=== PATIENT | male | born 1940 | race Caucasian/White ===

== ENCOUNTER → 2022-07-28 10:25 | Outpatient (BNVA) | payer MEDICARE, SELFPAY | PROVIDERS: PCP Family Medicine; Visit Provider Nurse Practitioner Family | DX: J44.9 Chronic obstructive pulmonary disease, unspecified (principal); R06.00 Dyspnea, unspecified | CPT/HCPCS: 99202 ==

== ENCOUNTER 2022-08-26 09:50 | Outpatient (REF) | payer MEDICARE, OTHER, SELFPAY ==
--- NOTE | ~2022-08-26 | CT_ITS ---
EXAMINATION: CT CHEST WITHOUT CONTRAST CLINICAL INFORMATION: COPD. COMPARISON: Chest x-ray 12/14/2007 TECHNIQUE: Multidetector volumetric CT imaging of the chest was done. Axial MIP volume rendering provided. Sagittal and coronal reformatted images were obtained. This CT examination was performed using dose optimization techniques as appropriate, variously including the following: *Automated exposure control *Adjustment of mA and/or kV according to patient size (this includes techniques or standardized protocols for targeted exams where dose is matched to indication/reason for exam; i.e. extremities or head) *Use of iterative reconstruction technique DLP: 269 mGy-cm FINDINGS: MASTER OCEAN: Hyperinflated lungs are clear. LUNGS: There is diffuse centrilobular emphysema with minimal bilateral apical parenchymal scarring and pleural thickening. There are no pulmonary nodules, mass or consolidation. MEDIASTINUM: Atherosclerotic changes of thoracic aorta without aneurysmal dilatation. Heart size is normal. No pericardial effusion seen. No abnormal size mediastinal or hilar lymph nodes seen. The thyroid lobes are symmetric and normal. The central trachea is slightly dilated secondary to COPD. No intraluminal filling defect or nodule seen. CORONARY ARTERY CALCIFICATION: Moderate coronary artery calcifications are present. PLEURA: There is right upper lobe posterior pleural calcification axial image 24/8. Some scattered calcification is seen in the right lung apical pleura and minimal in the left side. No pleural effusion or pleural thickening seen. AXILLA: No lymphadenopathy. UPPER ABDOMEN: Visualized liver, spleen, pancreas and bilateral adrenal glands are unremarkable. OSSEOUS STRUCTURES: No aggressive lytic or sclerotic process seen. CT/CT chest wo IV con IMPRESSION: Diffuse centrilobular emphysema. No pulmonary nodule, acute consolidation, mass or abnormal mediastinal adenopathy. Fleischner guidelines were followed.
== END 2022-08-26 09:51 | disposition home or self-care (01) ==
LOC: HO.CT 09:50
PROVIDERS: PCP Family Medicine; Visit Provider Nurse Practitioner Family
DX: J44.9 Chronic obstructive pulmonary disease, unspecified (principal)
CPT/HCPCS: 71250

== ENCOUNTER 2022-09-08 09:56 | Outpatient (AMB) | payer MEDICARE, OTHER, SELFPAY ==
--- NOTE | 2022-09-08 10:06 | MHC.OFFVIS ---
Intake Vital Signs 09/08/22 10:07 BP 112/68 Blood Pressure Location Lt brachial Position Sitting Pulse 96 Pulse Source Pulse Oximeter Pulse Oximetry (%) 95 Oxygen Delivery Method Room Air Intake Visit Reasons: Shortness of breath Vp Sales Required: No [employer] Director: [employer] Director offered & declined Allergies No Known Allergies Allergy (Mild, Unverified 09/08/22 10:11) unknown Medication List - Last Reconciled 09/08/22 by Evelyne Vuong LPN atorvastatin 40 mg PO BEDTIME clopidogrel 75 mg PO DAILY docusate sodium 50 mg PO DAILY ipratropium-albuterol 0.5 mg-3 mg(2.5 mg base)/3 mL 3 mL inhalation Q6H PRN lisinopril 10 mg PO DAILY lorazepam 1 mg PO BEDTIME PRN oxycodone-acetaminophen 2.5-325 mg 1 tab PO DAILY PRN pantoprazole 40 mg PO BID prednisone 40 mg (2 x 20 mg) PO DAILY tamsulosin 0.4 mg PO DAILY HPI Shortness of breath HPI Details Michael is a pleasant 81 year old male, former 150 pack year smoker, quit 10 years ago with underlying history of CVA x 3 and stomach cancer s/p radiation as well as multiple surgeries in 2013. At the last visit, he was started on duoneb treatments and reports significant improvements overall. He was using BID but felt it was contributing to BLE edema, so has been using once daily with good effect and has slowly been increasing his activity level. He denies any cough or wheezing. He has an echocardiogram scheduled next week and will have a consultation with cardiology next month. [facility] Social History (Updated 09/08/22 @ 10:15 by Evelyne Vuong LPN) Patient Tobacco Use Status: Former Tobacco user Tobacco use type: Cigarette Cigarette Packs Per Day: 3 Years Smoked: 50+/stopped 2013 Review of Systems Const Denies chills, Denies excessive sweating, Denies fever(s), Denies headache(s) and Denies night sweats Eyes Denies dry eyes, Denies irritation and Denies itchy eyes ENT Reports Normal hearing present and Denies headache(s) Card Denies chest pain, Denies chest pain at rest, Denies chest pain with activity, Reports dyspnea, Reports dyspnea on exertion and Reports orthopnea Resp Denies chest congestion, Denies cough, Denies hemoptysis, Denies excessive phlegm production, Denies pain on inspiration, Denies pain with cough, Reports dyspnea, Reports dyspnea on exertion and Denies stridor Musc Denies myalgias Neuro Reports Normal hearing present and Denies headache(s) Endo Denies excessive sweating Cristian/Lymph Denies lymphadenopathy Aller/Immun Denies itchy eyes Physical Exam Vital Signs: Last Vital Signs Pulse 96 09/08/22 10:07 BP 112/68 09/08/22 10:07 Pulse Ox 95 09/08/22 10:07 Oxygen Delivery Method Room Air 09/08/22 10:07 Const General: cooperative, healthy appearing, comfortable, no acute distress, well developed and alert Orientation/consciousness: patient oriented x3 HEENT Head: Yes normal to inspection, Yes normocephalic and Yes atraumatic Ears: hearing grossly normal bilaterally and external ears normal Eyes General: appearance normal, both eyes and all related structures Eyelids: Yes eyelids normal Sclerae: sclerae normal EOM: EOMs intact bilaterally Neck Neck: Yes normal visual inspection and Yes no lymphadenopathy Lymphatic: no lymphadenopathy noted Chest Chest palpation & inspection: normal inspection of the chest Resp Effort & Inspection: normal respiratory effort, able to speak in complete sentences, no audible wheezes, no cough, no stridor, not tachypneic, no tripod positioning and no use of accessory muscles Auscultation: no crackles, no wheezes and diminished lung sounds Cardio Jugular venous distension: no JVD Rate: regular rate Rhythm: regular rhythm Skin Other: warm, dry General skin exam: no rashes or lesions noted Neuro General: patient oriented x3 Cranial nerves: Yes Normal hearing present Cognition (Neuro): normal cognition Gait exam (Neuro): Assisted gait required Extrem General: Yes normal to inspection Psych Appearance: grossly normal and well kempt Speech and movement: Normal speech and movement present and Clear speech present Affect: normal affect Attitude: cooperative Thought process: Normal thought process present Thought content: Normal thought content present Insight: Good insight present (Psych) Judgement: Good judgement present (Psych) Assessment & Plan Assessment & Plan (1) COPD (chronic obstructive pulmonary disease): Code(s): J44.9 - Chronic obstructive pulmonary disease, unspecified (2) Dyspnea: Code(s): R06.00 - Dyspnea, unspecified Plan Michael reports notable improvements in dyspnea on exertion since starting duoneb and has been working towards increasing endurance. Offered to refer to pulmonary rehab but he declined at this time. Reviewed his chest CT with Dr. Duvall, as official read is not complete. Discussed findings of significant emphysema and right pleural based calcified nodule that could be related to an infectious, inflammatory or neoplastic process. Will call patient with final results and recommendation for follow up chest CT once read by radiologist. All questions were answered and patient is in agreement of plan. Will follow up when he returns from [place] in the Spring, or sooner if needed. Medications: Refilled ipratropium-albuterol 0.5 mg-3 mg(2.5 mg base)/3 mL start using twice daily 3 mL inhalation Q6H PRN 180 mL 6RF wheezing J44.9 - Chronic obstructive pulmonary disease, unspecified ipratropium-albuterol 0.5 mg-3 mg(2.5 mg base)/3 mL start using twice daily 3 mL inhalation Q6H PRN 180 mL 12RF wheezing J44.9 - Chronic obstructive pulmonary disease, unspecified Coding Level of Care Code Est Pt Level 4 (12283) Diagnoses COPD (chronic obstructive pulmonary disease) J44.9 Dyspnea R06.00
[2022-09-08 10:07] VITALS: BP 112/68; PULSE 96; O2SAT 95
== END 2022-09-08 10:43 | disposition home or self-care (01) ==
PROVIDERS: PCP Family Medicine; Visit Provider Nurse Practitioner Family
DX: J44.9 Chronic obstructive pulmonary disease, unspecified (principal); R06.00 Dyspnea, unspecified
CPT/HCPCS: 99214

== ENCOUNTER → 2022-09-08 09:56 | Outpatient (BNVA) | payer MEDICARE, OTHER, SELFPAY | PROVIDERS: PCP Family Medicine; Visit Provider Nurse Practitioner Family | DX: J44.9 Chronic obstructive pulmonary disease, unspecified (principal); R60.0 Localized edema; Z87.891 Personal history of nicotine dependence; Z79.52 Long term (current) use of systemic steroids; Z79.899 Other long term (current) drug therapy | CPT/HCPCS: 99212 ==

== ENCOUNTER → 2022-09-15 08:56 | Outpatient (REF) | payer MEDICARE, OTHER, SELFPAY ==
--- NOTE | 2022-09-15 08:59 | CA_ITS ---
Transthoracic Echocardiogram Patient (Last, First, Middle): Michael Patel F Gender: Male Date of : 1940 Age: 82 Procedure Date: 09/15/2022 Procedure Type: Transthoracic Echocardiogram Location: OP Height: 182.88 cm Weight: 57.15 kg BSA: 1.75 m2 Heart Rate: bpm BP: 130 / 60 mmHg Factory Supervisor: ARAVIND Referring MD: Maddy Becerra [employer] Symptoms: R06.00 - Dyspnea, unspecified Study Quality: Technically Difficult ECG Rhythm: Sinus Conclusions: - LVEF difficult to assess even with contrast; possibly mildly reduced at about 50%. - No obvious valvular pathology seen on this study. Findings Procedure Information Contrast agent, definity, is being given per protocol without apparent complications. Left Ventricle Normal left ventricular cavity size. There is normal left ventricular wall thickness. There is no evidence of regional wall motion abnormalities. Diastolic function is normal for age. Normal left ventricular filling pressures. LVEF difficult to assess even with contrast; possibly mildly reduced at about 50%. Right Ventricle Normal right ventricular cavity size and systolic function. Atria Both atria are normal in size. Aortic Valve There is a normal trileaflet aortic valve. There is mild calcification of the aortic valve. There is no aortic valve regurgitation. Mitral Valve The mitral valve appears normal. There is no mitral valve regurgitation. There is no mitral valve stenosis. Pulmonic Valve The pulmonic valve is likely normal. Tricuspid Valve Normal tricuspid valve structure. There is trace tricuspid valve regurgitation. Great Vessels The asc aorta is normal in size. Venous The inferior vena cava is mildly dilated and collapses greater than 50% with inspiration. Pericardium/Pleural There is no evidence of pericardial effusion. Prior Study Comparison No prior study available for comparison. Recommendations, Care & Conclusions No obvious valvular pathology seen on this study. Measurements 2D Linear Measurements IVSd: 0.83 0.6-0.9/0.6-1.0 cm LVIDd: 4.24 3.9-5.3/4.2-5.9 cm LVIDd Index: 2.42 2.4-3.2/2.2-3.1 cm/m2 LVIDs: 3.42 2.0-3.6 cm LVPWd: 0.81 0.7-1.1 cm LA Diam: 2.40 2.7-3.8/3.0-4.0 cm LAIDs Index: 1.37 1.5-2.3 cm/m2 LV Mass: 131.94 67-162/88-224 g LV Mass Index: 75.39 43-95/49-115 g/m2 LVOT Diam: 2.00 3.0+(-)1.3 cm 2D Systolic Function EF 4C: 51.50 >55% EF 2C: 59.80 >55% EF BiP: 55.40 >55% Mitral Valve MV Pk E: 0.62 MV PK A: 0.73 MV Decel Time: 177.00 E/A: 0.80 E'Lateral: 9.57 E'Medial: 6.96 E/E' Med: 8.90 E/E' Lat: 6.40 PHT: 52.00 MVA PHT: 4.23 Decel [place]: 3.49 Aortic Valve AoV Pk Toni: 0.74 AoV Mn Toni: 0.53 AoV VTI: 0.15 AoV Pk Grad: 2.00 Aov Mn Grad: 1.00 SACHIN Cont.VTI: 3.06 LVOT LVOT Pk Toni: 0.69 LVOT Mn Toni: 0.53 LVOT VTI: 0.15 LVOT Pk Grad: 2.00 LVOT Mn Grad: 1.00 LVOT Diam: 2.00 LVOT Area: 3.14 Diastolic Function MV Pk E: 0.62 MV Pk A: 0.73 E/A: 0.80 E'Medial: 6.96 E/E' Med: 8.90 E' Laterial: 9.57 E/E' Lat: 6.40 Right Ventricle TAPSE (mm): 19.80 TVS' Toni: 14.20 Tricuspid Valve TR Pk Toni: 2.01 TR Pk Grad: 16.00 RA Press: 8.00 RVSP: 24.00 Great Vessels Aorta Sinus of Valsalva: 3.76 2.0-3.5 cm Ao Asc: 2.80 2.1-3.4 cm Updated in Other Vendor System with Status of Final Mark Ross MD electronically signed on 09/15/2022 1:03:48 PM with status of Final
== END ==
LOC: HO.CARD 08:56
PROVIDERS: PCP Family Medicine; Visit Provider Nurse Practitioner Family
DX: R06.00 Dyspnea, unspecified (principal); R60.0 Localized edema
CPT/HCPCS: 93306; Q9957

== ENCOUNTER → 2022-09-15 08:59 | Outpatient (BNV) | payer MEDICARE, OTHER, SELFPAY | PROVIDERS: PCP Family Medicine; Visit Provider Internal Medicine | DX: R06.00 Dyspnea, unspecified (principal) | CPT/HCPCS: 93306 ==